=== PATIENT | female | born 1925 | race Caucasian/White ===

== ENCOUNTER 2016-10-05 21:22 | Inpatient (IN) | payer OTHER, MEDICARE ==
[2016-10-05] MEDS ORDERED: methylPREDNISolone NA SUCC 125 MG/2 ML VIAL IVPB ONE (21:51)
[2016-10-05] MEDS ORDERED: MAGNESIUM SULF 50% (8.12 MEQ/2 ML-1 GM VIAL) IVPB ONE (21:51)
[2016-10-05] MEDS ORDERED: ALBUTEROL SO4 2.5/IPRATROPIUM 0.5 INH SOL 3 ML VIAL.NEB. NEB ONE (21:51)
--- NOTE | 2016-10-05 21:51 | PDOC ---
History of Present Illness - General History Source: Patient <Kain Villalobos - Last Filed: 10/05/16 22:59> - General History Source: Patient, Long-Term Records Exam Limitations: No Limitations - History of Present Illness Initial Comments: 10/05/16 22:03 The patient is a 89 year old female with significant past medical history of COPD and hypertension who [facility] from [address] [place] [address] with 2 days of SOB and nonproductive cough. Patient reports her SOB is worsen with exertion. She denies fever, chills, diaphoresis, chest pain, jaw pain, shoulder pain, and arm pain. The patient denies abdominal pain, nausea, vomiting, and diarrhea. Allergies: NKDA Social History: Former smoker Past Surgical History: None reported PCP: Dr. Hawa Ray <Galilea Levy - Last Filed: 10/05/16 23:41> - General Chief Complaint: Respiratory Stated Complaint: SOB Time Seen by Provider: 10/05/16 21:48 Past History - Past Medical History COPD: Yes HTN: Yes - Immunization History Immunization Up to Date: Yes - Psycho/Social/Smoking Cessation Hx Suicidal Ideation: No Smoking History: Former smoker Have you smoked in the past 12 months: No Information on smoking cessation initiated: No Hx Alcohol Use: No Drug/Substance Use Hx: No Substance Use Type: None <Kain Villalobos - Last Filed: 10/05/16 22:59> <Galilea Levy - Last Filed: 10/05/16 23:41> - Past Medical History Allergies/Adverse Reactions: Allergies Allergy/AdvReac Type Severity Reaction Status Date / Time No Known Allergies Allergy Verified 10/05/16 22:44 Home Medications: Ambulatory Orders NK [No Known Home Medication] 10/05/16 Review of Systems - Review of Systems Able to Perform ROS?: Yes Comments:: 10/05/16 22:03 CONSTITUTIONAL: Absent: fever, chills, diaphoresis, generalized weakness, malaise, loss of appetite HEENT: Absent: rhinorrhea, nasal congestion, throat pain, throat swelling, difficulty swallowing, mouth swelling, ear pain, eye pain, visual Changes CARDIOVASCULAR: Absent: chest pain, syncope, palpitations, irregular heart rate, lightheadedness , peripheral edema RESPIRATORY: +dry cough, shortness of breath Absent: orthopnea, wheezing, stridor, hemoptysis GASTROINTESTINAL: Absent: abdominal pain, abdominal distension, nausea, vomiting, diarrhea, constipation, melena, hematochezia GENITOURINARY: Absent: dysuria, frequency, urgency, hesitancy, hematuria, flank pain, genital pain MUSCULOSKELETAL: Absent: myalgia, arthralgia, joint swelling SKIN: Absent: rash, itching, pallor NEUROLOGIC: Absent: headache, focal weakness or paresthesias, dizziness, unsteady gait, seizure, mental status changes, bladder or bowel incontinence PSYCHIATRIC: Absent: anxiety, depression, suicidal or homicidal ideation, hallucinations. <MildredGalilea - Last Filed: 10/05/16 23:41> *Physical Exam - Vital Signs Last Vital Signs Temp Pulse Resp BP Pulse Ox 97.6 F 84 22 132/72 98 10/05/16 21:39 10/05/16 21:39 10/05/16 21:39 10/05/16 21:39 10/05/16 21:39 <Kain Villalobos - Last Filed: 10/05/16 22:59> - Vital Signs Last Vital Signs Temp Pulse Resp BP Pulse Ox 97.6 F 84 22 132/72 98 10/05/16 21:39 10/05/16 21:39 10/05/16 21:39 10/05/16 21:39 10/05/16 21:39 - Physical Exam Comments: 10/05/16 22:04 GENERAL: Well developed, well nourished. Awake and alert. Moderate distress. HEENT: Normocephalic, atraumatic. PERRLA, EOMI. No conjunctival pallor. Sclera are non- icteric. Moist mucous membranes. Oropharynx is clear. NECK: Supple. Full ROM. No JVD. Carotid pulses 2+ and symmetric, without bruits. No thyromegaly. No lymphadenopathy. CARDIOVASCULAR: Regular rate and rhythm. No murmurs, rubs, or gallops. Distal pulses are 2+ and symmetric. PULMONARY: Moderate respiratory distress. Supraclavicular retractions. Conversational dyspnea. Bilateral decreased breath sounds. Scattered rhonchi bilaterally. ABDOMINAL: Soft. Non-tender. Non-distended. No rebound or guarding. No organomegaly. Normoactive bowel sounds. MUSCULOSKELETAL Normal range of motion at all joints. No bony deformities or tenderness. No CVA tenderness. EXTREMITIES: No cyanosis. No clubbing. No edema. No calf tenderness. SKIN: Warm and dry. Normal capillary refill. No rashes. No jaundice. NEUROLOGICAL: Alert, awake, appropriate. Cranial nerves 2-12 intact. Moving all extremities. No focal neurological deficits. PSYCHIATRIC: Cooperative. Good eye contact. Appropriate mood and affect. <MildredGalilea - Last Filed: 10/05/16 23:41> Heart Score/ECG Review - ECG Impressions Comment:: 10/05/16 22:04 NSR @83bpm Possible left atrial enlargement Borderline ECG <Galilea Levy - Last Filed: 10/05/16 23:41> ED Treatment Course - LABORATORY CBC & Chemistry Diagram: 10/05/16 22:00 10/05/16 22:00 <aKin Villalobos - Last Filed: 10/05/16 22:59> - LABORATORY CBC & Chemistry Diagram: 10/05/16 22:00 10/05/16 22:00 <MildredGalilea - Last Filed: 10/05/16 23:41> Medical Decision Making - Medical Decision Making 10/05/16 22:47 Dr. Villalobos: The scribe's documentation has been prepared under my direction and personally reviewed by me in its entirery. I confirm that the note above accurately reflects all work, treatment, procedures, and medical decision making performed by me. Patient in moderate respiratory distress. Pt will be admitted to ICU. Spoke to pt PCP, Dr. Quintanilla 10/05/16 22:59 Spoke to Casimiro Jones, accepts to ICU <Kain Villalobos - Last Filed: 10/05/16 22:59> - Medical Decision Making 10/05/16 22:[address] Hawa Ray (via answering service) at 22:[address] Ray responded back at 22:43 and patient's case was discussed. <Galilea Levy - Last Filed: 10/05/16 23:41> *DC/Admit/Observation/Transfer - Discharge Dispostion Admit: Yes <Kain Villalobos - Last Filed: 10/05/16 22:59> - Attestations Scribe Attestion: 10/05/16 22:04 Documentation prepared by Galilea Levy, acting as medical technologist clinical for Kain Villalobos MD <Galilea Levy - Last Filed: 10/05/16 23:41> Diagnosis at time of Disposition: Dyspnea Qualifiers: Dyspnea type: shortness of breath Qualified Code(s): R06.02 - Shortness of breath COPD (chronic obstructive pulmonary disease) Qualifiers: Chronic bronchitis type: unspecified
[2016-10-05] MEDS ORDERED: methylPREDNISolone NA SUCC 125 MG/2 ML VIAL ONE (22:00)
[2016-10-05] MEDS ORDERED: MAGNESIUM SULF 50% (8.12 MEQ/2 ML-1 GM VIAL) ONE (22:00)
[2016-10-05 22:26] LABS: BASOPHIL 0.5 % (0-2.0); EOSINOPHIL 0.1 % (0-4.5); MCHC 32.3 g/dl (32.0-36.0); MEAN CELL VOLUME 89.9 fl (80-96); MEAN PLT VOLUME 10.7 fl (7.5-11.1); NEUTROPHILS 88.5 % (42.8-82.8); PLATELET COUNT 232 K/MM3 (134-434); RDW 14.1 % (11.6-15.6); WHITE BLOOD COUNT 9.7 K/mm3 (4.0-10.0)
[2016-10-05] MEDS ORDERED: KETOROLAC TROMETHAMINE 30 MG/1 ML VIAL IVPUSH ONE (22:35)
[2016-10-05 22:44] LABS: ALBUMIN 4.1 g/dl (3.4-5.0); ANION GAP 6 (8-16); CALCIUM 9.5 mg/dL (8.5-10.1); CO2 30 mmol/L (21-32); GLUCOSE,RANDOM 163 mg/dL (74-106); SGPT/ALT 19 U/L (12-78)
[2016-10-05 22:47] LABS: ALK PHOS 125 U/L (45-117); BILIRUBIN,TOTAL 0.5 mg/dL (0.2-1.0); CREATININE 0.7 mg/dL (0.55-1.02); SGOT/AST 12 U/L (15-37)
--- NOTE | 2016-10-06 00:01 | CONSULT ---
Consult - text type - Consultation Consultation Note: PULM/CCM CC: Shortness of breath HPI: Ms Noriega is a very pleasant 89 y/o woman with hx of COPD (no intubations , infrequent exacerbations) and HTN who presented today to ED via ambulance from [place] with 48hrs of increased WOB, DOOLEY, and non-productive cough. She denied CXPN, LOC, fever, chills, sweats, falls. Was started on Pred 10mg yesterday, didnt take this morning. [place] called EMS when pt became increasingly SOB. In ED pt was afebrile, normotensive, non-toxic but with significant respiratory distress and accessory muscle use. She was given IV solu-medrol and stack Duo- nebs with some mild relief. CXR showed no infiltrate. No abx were started given clear CXR. She was transferred to ICU for further care. NIVPPV was started for her WOB and low dose benzo added for significant anxiety component PMHX: COPD HTN PSH: aortic aneurysm repair ~ 5 yrs ago Family HX non contrib Social Hx: [place] resident, hx of Tob, quit ~ 25 yrs ago. minimal ETOH. no illicts Medication Instructions Recorded NK [No Known Home Medication] 10/05/16 Current Medications Albuterol/Ipratropium (Duoneb -) 1 amp NEB QIDR [facility] Heparin Sodium (Porcine) (Heparin -) 5,000 unit SQ BID [facility] Methylprednisolone Sodium Succinate (Solu-Medrol -) 125 mg IVPB Q6H-IV [facility] Mometasone Furoate (Asmanex 220mcg -) 1 puff IH BID [facility] Montelukast Sodium (Singulair -) 10 mg PO HS [facility] Pantoprazole Sodium (Protonix -) 40 mg PO DAILY [facility] EKG: Sinus rhythm no ischemic changes. normal intervals CXR: no infiltrate, no pneumothorax, sternotomy sutures. PE: Gen- eld woman, anxious, in moderate resp distress, hypophonic HEENT: PERRL PULM: preserved inspiratory effort, no wheezes, mild retractions CX: RRR, no m/r/g appreciated ABD: soft, NT EXT: no edema INt: no rash Neuro: anxious, intact, lucid oriented A/89 y/o woman [place] resident w/ hx of COPD p/w increase WOB, non-productive cough x2 days c/w exacerbation P/ -will start BiPAP to assist with wob -ativan 0.5 PO for axiety -if worsens check ABG for hypercapnea -solumedrol 125 q 6, with quick taper if improves -duo nebs q6 (not currently wheezing) -restart singulair/OP meds when improved -check viral swab -check UA -DVT prophy -cont PPI -icu monitoring itzel Jones ANCP [id number] 35min CCT
--- NOTE | 2016-10-06 00:09 | PN ---
Progress Note (short form) - Note Progress Note: 89 y/o female with hx of COPD / HTN seen earlier this am ( about 10-11am ) as an urgent visit who reported had been comfortable until exposure to "white liquid" / "fumes" while in the laundry room. I saw her shortly after receiving MDI treatment with combivent. She stated the extra dose made her much more comfortable. ----- At time of exam she was speaking in full sentences / good response to dose inhaler / no distress. -----Exam revealed NO stridor / NO wheezing, and good air movement. I ordered PO steroids to prevent further exacerbation-- pharmacy was called and agreed to deliver meds by noon. She was prescribed Prednisone 20mg daily X5day ----first dose As soon as delivered. She was instructed to call 911 and go to [facility] ER if further deterioration Loli SIMONS MD
[2016-10-06] MEDS: methylPREDNISolone NA SUCC 125 MG/2 ML VIAL IVPB SCH ×3 (00:16→09:26)
[2016-10-06] MEDS: ALBUTEROL SO4 2.5/IPRATROPIUM 0.5 INH SOL 3 ML VIAL.NEB. NEB SCH ×4 (00:27→18:35)
[2016-10-06 00:54] VITALS: BMI 19.8
[2016-10-06 08:15] LABS: MCH 30.1 pg (25.7-33.7); MCHC 33.2 g/dl (32.0-36.0); MEAN CELL VOLUME 90.6 fl (80-96); MEAN PLT VOLUME 10.5 fl (7.5-11.1); PLATELET COUNT 193 K/MM3 (134-434); WHITE BLOOD COUNT 7.3 K/mm3 (4.0-10.0)
[2016-10-06 08:54] LABS: CALCIUM 8.9 mg/dL (8.5-10.1); CREATININE 0.6 mg/dL (0.55-1.02); MAGNESIUM 2.6 mg/dL (1.8-2.4); PHOSPHOROUS 3.3 mg/dL (2.5-4.9)
--- NOTE | 2016-10-06 09:35 | EKG ---
Test Reason : Blood Pressure : / mmHG Vent. Rate : 083 BPM Atrial Rate : 083 BPM P-R Int : 150 ms QRS Dur : 072 ms QT Int : 398 ms P-R-T Axes : 078 060 084 degrees QTc Int : 467 ms NORMAL SINUS RHYTHM POSSIBLE LEFT ATRIAL ENLARGEMENT BORDERLINE ECG WHEN COMPARED WITH ECG OF 24-JAN-2016 04:19, NO SIGNIFICANT CHANGE WAS FOUND Confirmed by MAC MENDOZA, BHARATH ([id number]) on 10/06/2016 9:35:14 AM Referred By: Confirmed By:BHARATH WATTS MD
[2016-10-06] MEDS ORDERED: PANTOPRAZOLE 40 MG TABLET (FP) PO SCH (10:00)
[2016-10-06] MEDS ORDERED: MOMETASONE FUROATE 220 MCG/IH INHALER IH SCH (10:00)
[2016-10-06] MEDS ORDERED: HEPARIN NA (PORCINE) 5,000 UNITS/ML 1ML VIAL SQ SCH (10:00)
[2016-10-06] MEDS ORDERED: PT OWN MED DRAWER 7, Y5N ONE (10:39)
--- NOTE | 2016-10-06 12:20 | PN ---
Teaching Attending Note Name of Resident: Osmar Crum ATTENDING PHYSICIAN STATEMENT I saw and evaluated the patient. I reviewed the resident's note and discussed the case with the resident. I agree with the resident's findings and plan as documented. SUBJECTIVE: Pt seen and examined in the ICU. Breathing significantly improved. Voice still hoarse. Some cough and wheezing. OBJECTIVE: Last Vital Signs Temp Pulse Resp BP Pulse Ox 97.9 F 80 29 H 126/91 93 L 10/06/16 10:00 10/06/16 10:14 10/06/16 10:00 10/06/16 10:00 10/06/16 12:15 Intake & Output 10/03/16 10/04/16 10/05/16 10/06/16 23:59 23:59 23:59 23:59 Intake Total 340 Balance 340 Weight 108 lb 1.6 oz 108 lb 1.6 oz Gen: NAD at rest Neck: no stridor Heart: RRR Lung: scattered wheeze, rhonchi Abd: soft, nontender Ext: no edema CBC, BMP 10/06/16 07:45 10/06/16 07:45 Active Medications Albuterol/Ipratropium (Duoneb -) 1 amp NEB QIDR [facility] Last Admin: 10/06/16 11:30 Dose: 1 amp Dexamethasone Sodium Phosphate (Decadron Injection -) 8 mg IVPB Q8H-IV [facility] Heparin Sodium (Porcine) (Heparin -) 5,000 unit SQ BID [facility] Last Admin: 10/06/16 09:26 Dose: 5,000 unit Mometasone Furoate (Asmanex 220mcg -) 1 puff IH BID [facility] Last Admin: 10/06/16 12:00 Dose: 1 puff Montelukast Sodium (Singulair -) 10 mg PO HS [facility] Pantoprazole Sodium (Protonix -) 40 mg PO DAILY [facility] Last Admin: 10/06/16 09:26 Dose: 40 mg ASSESSMENT AND PLAN: Acute Respiratory Distress Acute COPD Exacerbation ?Upper Airway Obstruction r/o Vocal Cord Dysfunction vs Edema - IV decadron - inhaled bronchodilators - O2 to keep SpO2 >90% - BiPAP as needed to assist in work of breathing - DVT/GI prophylaxis
--- NOTE | 2016-10-06 14:57 | PN ---
Progress Note, Physician History of Present Illness: patient seen and examined no events overnight doing well - Current Medication List Current Medications: Active Medications Albuterol/Ipratropium (Duoneb -) 1 amp NEB QIDR [facility] Last Admin: 10/06/16 11:30 Dose: 1 amp Dexamethasone Sodium Phosphate (Decadron Injection -) 8 mg IVPB Q8H-IV [facility] Heparin Sodium (Porcine) (Heparin -) 5,000 unit SQ BID [facility] Last Admin: 10/06/16 09:26 Dose: 5,000 unit Mometasone Furoate (Asmanex 220mcg -) 1 puff IH BID [facility] Last Admin: 10/06/16 12:00 Dose: 1 puff Montelukast Sodium (Singulair -) 10 mg PO HS [facility] Pantoprazole Sodium (Protonix -) 40 mg PO DAILY [facility] Last Admin: 10/06/16 09:26 Dose: 40 mg - Objective Vital Signs: Vital Signs Temperature 97.9 F 10/06/16 10:00 Pulse Rate 115 H 10/06/16 12:00 Respiratory Rate 18 10/06/16 12:00 Blood Pressure 133/97 10/06/16 12:00 O2 Sat by Pulse Oximetry (%) 93 L 10/06/16 12:15 Constitutional: Yes: No Distress, Calm Eyes: Yes: Conjunctiva Clear HENT: Yes: Atraumatic Neck: Yes: Supple Cardiovascular: Yes: Regular Rate and Rhythm Respiratory: Yes: CTA Bilaterally Gastrointestinal: Yes: Soft Edema: No Labs: CBC, BMP 10/06/16 07:45 10/06/16 07:45 Assessment/Plan 89F with PMH of HTN and COPD admitted with 2 days of SOB and dry cough with respiratory distress Acute respiratory distress: likely secondary to acute exacerbation of COPD was on BiPAp now patient is refusing saturating well on nasal cannula BiPAp PRN Bronchodilators stop solumedrol decadron 8mg q8h Asamex singulair possible upper airway obstruction ENT consult to r/o vocal cord dysfunction/edema IV decadron HTN: on norvasc at home hold for now as BP controlled FEN: No IVF no electrolyte issues reg diet PPx: HSQ Protonix PO PT consult not needed
[2016-10-06] MEDS ORDERED: DEXAMETHASONE SOD PHOSPHATE 10 MG/1 ML VIAL IVPB SCH (18:00)
[2016-10-06 19:54] LABS: PH,URINE 5.5 (5.0-8.0); URINE APPEARANCE CLEAR; URINE BILIRUBIN NEGATIVE (NEGATIVE); URINE BLOOD NEGATIVE (NEGATIVE); URINE COLOR YELLOW; URINE GLUCOSE (UA) 2+ (NEGATIVE); URINE KETONE TRACE (NEGATIVE); URINE LEUK ESTERASE NEGATIVE (NEGATIVE); URINE NITRITE NEGATIVE (NEGATIVE); URINE PROTEIN TRACE (NEGATIVE); URINE UROBILINOGEN 0.2 E.U/dl E.U./dl (0.2-1.0)
[2016-10-06] MEDS: HEPARIN NA (PORCINE) 5,000 UNITS/ML 1ML VIAL SQ SCH (21:07)
[2016-10-06] MEDS: MOMETASONE FUROATE 220 MCG/IH INHALER IH SCH (21:08)
[2016-10-06] MEDS: MONTELUKAST NA 10 MG TABLET PO SCH (21:09)
[2016-10-06] MEDS ORDERED: MONTELUKAST NA 10 MG TABLET PO SCH (22:00)
--- NOTE | 2016-10-06 22:29 | HP ---
Admitting History and Physical - Admission Chief Complaint: cant breath History of Present Illness: The patient is a 89 year old female with significant past medical history of COPD and hypertension who presents to the ED BIBA from [address] [place] [address] with what she reports is 2 days of SOB and nonproductive cough, however I saw the patient earlier in the day and exacerbation began the same day. She denies fever , chills, diaphoresis, chest pain, jaw pain, shoulder pain, and arm pain. 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) Cardiovascular: Yes: Aneurysm (s/p repair of decending aortic aneurysm >60 yrs ago), HTN Pulmonary: Yes: COPD Reproductive: Yes: Postmenopausal - Smoking History Smoking history: Former smoker Have you smoked in the past 12 months: No - Alcohol/Substance Use Hx Alcohol Use: No - Social History Usual Living Arrangement: Yes: Alone ADL: Independent History of Recent Travel: No Home Medications - Allergies Allergies/Adverse Reactions: Allergies Allergy/AdvReac Type Severity Reaction Status Date / Time No Known Allergies Allergy Verified 10/05/16 22:44 - Home Medications Home Medications: Ambulatory Orders NK [No Known Home Medication] 10/05/16 Review of Systems - Review of Systems Constitutional: reports: No Symptoms Eyes: reports: No Symptoms HENT: reports: No Symptoms, Nasal Congestion Neck: reports: No Symptoms Cardiovascular: reports: Shortness of Breath Respiratory: reports: SOB Gastrointestinal: reports: No Symptoms Genitourinary: reports: No Symptoms Breasts: reports: No Symptoms Reported Musculoskeletal: reports: No Symptoms Integumentary: reports: No Symptoms Neurological: reports: No Symptoms Endocrine: reports: No Symptoms Hematology/Lymphatic: reports: No Symptoms Psychiatric: reports: No Symptoms Physical Examination Vital Signs: Vital Signs Temperature 98.2 F 10/06/16 18:00 Pulse Rate 90 10/06/16 18:00 Respiratory Rate 12 10/06/16 18:00 Blood Pressure 134/85 10/06/16 18:00 O2 Sat by Pulse Oximetry (%) 93 L 10/06/16 12:15 Constitutional: Yes: Well Nourished, Anxious, Moderate Distress Eyes: Yes: Conjunctiva Clear, EOM Intact, PERRL HENT: Yes: Atraumatic, Normocephalic, Nasal Congestion Neck: Yes: Supple, Trachea Midline Cardiovascular: Yes: Regular Rate and Rhythm Respiratory: Yes: Accessory Muscle Use, Cough, On BiPap Gastrointestinal: Yes: Normal Bowel Sounds, Soft ...Rectal Exam: Yes: Deferred Renal/: Yes: WNL Breast(s): Yes: WNL Musculoskeletal: Yes: WNL Extremities: Yes: WNL Edema: No Peripheral Pulses: Left Radial: 1+, Right Radial: 1+, Left Doralis Pedis: 1+, Right Dorsalis Pedis: 1+, Left Femoral: 1+, Right Femoral: 1+ Integumentary: Yes: WNL Neurological: Yes: WNL, Confusion Psychiatric: Yes: Alert, Agitated (was sedated upon admission to ICU) Labs: CBC, BMP 10/06/16 07:45 10/06/16 07:45 Problem List - Problems (1) Acute respiratory distress Assessment/Plan: acute distress / evaluated in ER admitted to ICU low dose sedation now on bipap seems more comfortable Code(s): J80 - ACUTE RESPIRATORY DISTRESS SYNDROME (2) COPD (chronic obstructive pulmonary disease) Assessment/Plan: acute exacerbation Code(s): J44.9 - CHRONIC OBSTRUCTIVE PULMONARY DISEASE, UNSPECIFIED Qualifiers : Chronic bronchitis type: unspecified (3) Hypertension Assessment/Plan: stable without meds will continue to monitor Norvasc on hold Code(s): I10 - ESSENTIAL (PRIMARY) HYPERTENSION
--- NOTE | 2016-10-06 23:05 | PN ---
Progress Note (short form) - Note Progress Note: patient seen on medical lopez transfered from ICU comfortable but confused and agitated Vital Signs Period Temp Pulse Resp BP Sys/Pino Pulse Ox Last 24 Hr 97.7 F-98.5 F 72-115 12-32 116-147/63-97 93-100 on O2 NC -- however keeps taking it off no respiratory disstress neck no JVD heart regular S1/S2 lungs clear bilat abd soft ext no edema FROM CBC, BMP 10/06/16 07:45 10/06/16 07:45 Active Medications Albuterol/Ipratropium (Duoneb -) 1 amp NEB QIDR [facility] Dexamethasone Sodium Phosphate (Decadron Injection -) 8 mg IVPB Q8H-IV [facility] Heparin Sodium (Porcine) (Heparin -) 5,000 unit SQ BID [facility] Last Admin: 10/06/16 21:07 Dose: 5,000 unit Mometasone Furoate (Asmanex 220mcg -) 1 puff IH BID [facility] Last Admin: 10/06/16 21:08 Dose: 1 pfu Montelukast Sodium (Singulair -) 10 mg PO HS [facility] Last Admin: 10/06/16 21:09 Dose: 10 mg Pantoprazole Sodium (Protonix -) 40 mg PO DAILY [facility] Problem List - Problems (1) Acute respiratory distress Code(s): J80 - ACUTE RESPIRATORY DISTRESS SYNDROME (2) COPD (chronic obstructive pulmonary disease) Assessment/Plan: will tirate decadrom in am ENT evaluation for dyspnea as LUNG clear Code(s): J44.9 - CHRONIC OBSTRUCTIVE PULMONARY DISEASE, UNSPECIFIED Qualifiers : Chronic bronchitis type: unspecified (3) Hypertension Assessment/Plan: continue to [facility] Code(s): I10 - ESSENTIAL (PRIMARY) HYPERTENSION (4) Confusion and disorientation Assessment/Plan: will treat with Haldol and observe for safety Code(s): F99 - MENTAL DISORDER, NOT OTHERWISE SPECIFIED
[2016-10-06] MEDS ORDERED: HALOPERIDOL 1 MG TABLET (FP) PO STA (23:07)
[2016-10-07] MEDS: ALBUTEROL SO4 2.5/IPRATROPIUM 0.5 INH SOL 3 ML VIAL.NEB. NEB SCH ×5 (00:16→23:09)
[2016-10-07] MEDS ORDERED: HALOPERIDOL 1 MG TABLET (FP) PO ONE (00:45)
[2016-10-07] MEDS: DEXAMETHASONE SOD PHOSPHATE 4 MG/1 ML VIAL IVPB SCH ×2 (01:00→09:16)
[2016-10-07] MEDS ORDERED: DEXAMETHASONE SOD PHOSPHATE 4 MG/1 ML VIAL IVPB SCH (02:00)
[2016-10-07] MEDS ORDERED: HALOPERIDOL LACTATE 5 MG/ML ONE (05:58)
[2016-10-07] MEDS ORDERED: HALOPERIDOL LACTATE 5 MG/ML IM ONE (06:45)
--- NOTE | 2016-10-07 08:10 | CONSULT ---
Consult Consult Specialty:: ENT Referred by:: Dr. Crum Reason for Consultation:: vocal cord paralysis - History of Present Illness Chief Complaint: hoarseness History of Present Illness: 89 yo F assisted living resident complains of sore throat for one week, states saw MD, rx prednisone several days ago but did not improve, also hx COPD, pt says she uses Combivent prn Admitted to [facility] 10-05-16 had acute respiratory distress, transferred to ICU pt reports wearing a mask ?BIPAP which fit tightly over her face and had a part below her chin/around her neck reports voice change since denies any swallowing problems with solids or liquids denies prior history of voice change or hoarseness denies abdominal pain, heartburn or reflux - History Source History Provided By: Patient, Medical Record Limitations to Obtaining History: Dementia - 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) Cardio/Vascular: Yes: Aneurysm (s/p repair of decending aortic aneurysm >60 yrs ago), HTN Pulmonary: Yes: COPD - Past Surgical History Additional Surgical History: aortic aneurysm repair (pt reports ~5 years ago) - Alcohol/Substance Use Hx Alcohol Use: No - Smoking History Smoking history: Former smoker Have you smoked in the past 12 months: No - Social History ADL: Independent History of Recent Travel: No Home Medications - Allergies Allergies/Adverse Reactions: Allergies Allergy/AdvReac Type Severity Reaction Status Date / Time No Known Allergies Allergy Verified 10/05/16 22:44 - Home Medications Home Medications: Ambulatory Orders NK [No Known Home Medication] 10/05/16 Family Disease History - Family Disease History Family History: Unable to Obtain Physical Exam-ENT Vital Signs: Vital Signs Temperature 98.0 F 10/07/16 06:00 Pulse Rate 98 H 10/07/16 06:00 Respiratory Rate 12 10/07/16 06:00 Blood Pressure 139/97 10/07/16 06:00 O2 Sat by Pulse Oximetry (%) 97 10/06/16 21:00 Constitutional: Yes: No Distress, Anxious, Other (dysphonia, no stridor or respiratory distress) Head: Yes: WNL Face: Yes: WNL Eyes: Yes: WNL Nose: Yes: Septum Deviated Nasal Passage: Yes: Other (edema of turbinates, clear mucus, no bleeding pus or polyp) Oral/Pharynx: Yes: WNL, Other (flexible laryngoscopy: nasopharynx mild edema, clear mucus no lesion, base of tongue WNL no mass, epiglottis normal, no edema, airway patent, scant clear mucus, no pooling, endolarynx: mild to moderate arytenoid/postglottic edema, mild edema of false vocal cords, true vocal cords slight edema, no discrete lesion. Vocal cord mobiltiy: normal left, intermittently sluggish right) Outer Ear: Yes: WNL Neck: Yes: WNL Respiratory: Yes: WNL Imaging - Results Chest X-ray: Report Reviewed, Image Reviewed (lungs clear, sternal wires) Problem List - Problems (1) Hoarseness Assessment/Plan: voice change pt reports noticing a change in her voice since using BIPAP per hx former smoker, but no evidence of neoplasm denies heartburn, on pantoprazole ?prophylactic? flexible laryngoscopy shows no lesion but +vocal cord dysfunction right, intermittent no swallowing problems reported Recommend: observe ok for outpatient management concur with PPI or H2 zbigniew for possible laryngopharyngeal reflux reflux precautions follow-up in office after discharge consider speech pathology evaluation, possible speech/voice therapy (outpatient ok) Thank you for consultation, Dave Cazares MD Code(s): R49.0 - DYSPHONIA
[2016-10-07] MEDS ORDERED: PT OWN MED DRAWER 7, Y5N ONE ×5 (09:04→22:37)
[2016-10-07] MEDS: HEPARIN NA (PORCINE) 5,000 UNITS/ML 1ML VIAL SQ SCH ×2 (09:16→22:20)
[2016-10-07] MEDS: MOMETASONE FUROATE 220 MCG/IH INHALER IH SCH ×2 (09:17→22:21)
[2016-10-07] MEDS: PANTOPRAZOLE 40 MG TABLET (FP) PO SCH (09:18)
--- NOTE | 2016-10-07 13:36 | PN ---
Progress Note (short form) - Note Progress Note: PULMONARY ENT eval appreciated, intermittent right vocal cord dysfunction noted on exam. Confused. Last Vital Signs Temp Pulse Resp BP Pulse Ox 98.0 F 97 H 16 128/62 95 10/07/16 10:00 10/07/16 11:14 10/07/16 10:00 10/07/16 10:00 10/07/16 11:14 Gen: NAD at rest Heart: RRR Lung: rare rhonchi, no wheezes Abd: soft, nontender Ext: no edema CBC, BMP 10/06/16 07:45 10/06/16 07:45 Active Medications Albuterol/Ipratropium (Duoneb -) 1 amp NEB QIDR [facility] Last Admin: 10/07/16 11:15 Dose: 1 amp Dexamethasone Sodium Phosphate (Decadron Injection -) 4 mg IVPB Q8H-IV [facility] Last Admin: 10/07/16 09:16 Dose: Not Given Heparin Sodium (Porcine) (Heparin -) 5,000 unit SQ BID [facility] Last Admin: 10/07/16 09:16 Dose: Not Given Mometasone Furoate (Asmanex 220mcg -) 1 puff IH BID [facility] Last Admin: 10/07/16 09:17 Dose: 1 puff Montelukast Sodium (Singulair -) 10 mg PO HS [facility] Last Admin: 10/06/16 21:09 Dose: 10 mg Pantoprazole Sodium (Protonix -) 40 mg PO DAILY [facility] Last Admin: 10/07/16 09:18 Dose: 40 mg A/P Acute Respiratory Distress resolved Acute COPD Exacerbation Right Vocal Cord Dysfunction - will change her steroids to PO as the high dose may be contributing to her confusion and her lung exam much improved - inhaled bronchodilators - O2 to keep SpO2 >90% - BiPAP as needed to assist in work of breathing - DVT/GI prophylaxis
[2016-10-07] MEDS ORDERED: HALOPERIDOL 1 MG TABLET (FP) PO PRN (15:34)
[2016-10-07] MEDS: MONTELUKAST NA 10 MG TABLET PO SCH (22:21)
--- NOTE | 2016-10-07 23:55 | PN ---
Progress Note (short form) - Note Progress Note: awake alert confused /pressured speech / dressed "to go home now " able to ambulate in room and hallway has Aide for safety. Spoke to daughter Kalie Noriega ( vet) discussed current care and plans for out patient follow up patient has refused decadon today but has maintained stable respiratory status Vital Signs Period Temp Pulse Resp BP Sys/Pino Pulse Ox Last 24 Hr 98.0 F-98.0 F 87-98 12-16 120-139/54-97 93-95 neck - JVD heart regular S1S2 lungs clear bilat abd soft non tender ext no edema CBC,CMP WBC 7.3 K/mm3 (4.0-10.0) 10/06/16 07:45 RBC 4.66 M/mm3 (3.60-5.2) 10/06/16 07:45 Hgb 14.0 GM/dL (10.7-15.3) 10/06/16 07:45 Hct 42.2 % (32.4-45.2) 10/06/16 07:45 MCV 90.6 fl (80-96) 10/06/16 07:45 MCHC 33.2 g/dl (32.0-36.0) 10/06/16 07:45 RDW 14.0 % (11.6-15.6) 10/06/16 07:45 Plt Count 193 K/MM3 (134-434) 10/06/16 07:45 MPV 10.5 fl (7.5-11.1) 10/06/16 07:45 Neutrophils % 92.0 % (42.8-82.8) H 10/06/16 07:45 Lymphocytes % 7.0 % (8-40) L 10/06/16 07:45 Monocytes % 0.5 % (3.8-10.2) L D 10/06/16 07:45 Eosinophils % 0.0 % (0-4.5) D 10/06/16 07:45 Basophils % 0.0 % (0-2.0) 10/06/16 07:45 Sodium 140 mmol/L (136-145) 10/06/16 07:45 Potassium 3.8 mmol/L (3.5-5.1) 10/06/16 07:45 Chloride 106 mmol/L (98-107) 10/06/16 07:45 Carbon Dioxide 26 mmol/L (21-32) 10/06/16 07:45 Anion Gap 8 (8-16) 10/06/16 07:45 BUN 12 mg/dL (7-18) 10/06/16 07:45 Creatinine 0.6 mg/dL (0.55-1.02) 10/06/16 07:45 Creat Clearance w eGFR > 60 (>60) 10/05/16 22:00 Random Glucose 222 mg/dL (74-106) H D 10/06/16 07:45 Calcium 8.9 mg/dL (8.5-10.1) 10/06/16 07:45 Phosphorus 3.3 mg/dL (2.5-4.9) 10/06/16 07:45 Magnesium 2.6 mg/dL (1.8-2.4) H 10/06/16 07:45 Total Bilirubin 0.5 mg/dL (0.2-1.0) D 10/05/16 22:00 AST 12 U/L (15-37) L 10/05/16 22:00 ALT 19 U/L (12-78) 10/05/16 22:00 Alkaline Phosphatase 125 U/L (45-117) H D 10/05/16 22:00 Total Protein 8.0 g/dl (6.4-8.2) 10/05/16 22:00 Albumin 4.1 g/dl (3.4-5.0) 10/05/16 22:00 Microbiology 10/06/16 07:00 Nasopharyngeal Swab Respiratory Virus (PCR) - Preliminary 10/06/16 14:20 Urine - Urine Clean Catch Urine Culture - Final NO GROWTH OBTAINED Active Medications Albuterol/Ipratropium (Duoneb -) 1 amp NEB QIDR COUNT INCLUDES [facility] Last Admin: 10/07/16 23:09 Dose: Not Given Haloperidol (Haldol -) 1 mg PO Q8H PRN PRN Reason: AGITATION Heparin Sodium (Porcine) (Heparin -) 5,000 unit SQ BID COUNT [facility]CLUDES [facility] Last Admin: 10/07/16 22:20 Dose: Not Given Mometasone Furoate (Asmanex 220mcg -) 1 puff IH BID COUNT [facility]CLUDES [facility] Last Admin: 10/07/16 22:21 Dose: Not Given Montelukast Sodium (Singulair -) 10 mg PO HS [facility]CLUD[facility] Last Admin: 10/07/16 22:21 Dose: 10 mg Pantoprazole Sodium (Protonix -) 40 mg PO DAILY COUNT [facility]CLUD[facility] Last Admin: 10/07/16 09:18 Dose: 40 mg Prednisone (Deltasone -) 40 mg PO DAILY COUNT [facility]CLUDES [facility] respiratory status has remained stable / less agitated / more cooperative ?steroid psychosis --improving with less steroids probable D/C in am Problem List - Problems (1) Hoarseness Assessment/Plan: seen by ENT today no significant findings will continue taper steroid speech eval at [facility] Code(s): R49.0 - DYSPHONIA (2) Acute respiratory distress Code(s): J80 - ACUTE RESPIRATORY DISTRESS SYNDROME (3) COPD (chronic obstructive pulmonary disease) Code(s): J44.9 - CHRONIC OBSTRUCTIVE PULMONARY DISEASE, UNSPECIFIED (4) Hypertension Code(s): I10 - ESSENTIAL (PRIMARY) HYPERTENSION (5) Confusion and disorientation Code(s): F99 - MENTAL DISORDER, NOT OTHERWISE SPECIFIED
[2016-10-08] MEDS: ALBUTEROL SO4 2.5/IPRATROPIUM 0.5 INH SOL 3 ML VIAL.NEB. NEB SCH ×4 (05:45→23:10)
[2016-10-08] MEDS ORDERED: PT OWN MED DRAWER 7, Y5N ONE ×2 (09:15→20:45)
[2016-10-08] MEDS: MOMETASONE FUROATE 220 MCG/IH INHALER IH SCH ×2 (09:19→21:35)
[2016-10-08] MEDS: HEPARIN NA (PORCINE) 5,000 UNITS/ML 1ML VIAL SQ SCH ×2 (09:19→21:35)
[2016-10-08] MEDS: PANTOPRAZOLE 40 MG TABLET (FP) PO SCH (09:20)
[2016-10-08] MEDS: predniSONE 20 MG TABLET (UD) PO SCH ×2 (09:23→10:18)
--- NOTE | 2016-10-08 10:33 | PN ---
Progress Note (short form) - Note Progress Note: dysneic at rest / using O2 Vital Signs Period Temp Pulse Resp BP Sys/Pino Pulse Ox Last 24 Hr 97.4 F-98.2 F 80-97 16-16 126-145/67-82 95-96 neck no jvd heart S1/S2 lungs distant decreased BS no wheezing abd soft non tender ext no edema Vital Signs Period Temp Pulse Resp BP Sys/Pino Pulse Ox Last 24 Hr 97.4 F-98.2 F 80-97 16-16 126-145/67-82 95-98 Microbiology 10/06/16 07:00 Nasopharyngeal Swab Respiratory Virus (PCR) - Preliminary 10/06/16 14:20 Urine - Urine Clean Catch Urine Culture - Final NO GROWTH OBTAINED Active Medications Albuterol/Ipratropium (Duoneb -) 1 amp NEB QIDR [facility] Last Admin: 10/08/16 05:45 Dose: 1 amp Haloperidol (Haldol -) 1 mg PO Q8H PRN PRN Reason: AGITATION Heparin Sodium (Porcine) (Heparin -) 5,000 unit SQ BID [facility] Last Admin: 10/08/16 09:19 Dose: Not Given Mometasone Furoate (Asmanex 220mcg -) 1 puff IH BID [facility] Last Admin: 10/08/16 09:19 Dose: Not Given Montelukast Sodium (Singulair -) 10 mg PO HS [facility] Last Admin: 10/07/16 22:21 Dose: 10 mg Pantoprazole Sodium (Protonix -) 40 mg PO DAILY [facility] Last Admin: 10/08/16 09:20 Dose: Not Given Prednisone (Deltasone -) 40 mg PO DAILY [facility] Last Admin: 10/08/16 10:18 Dose: 40 mg assmt dysneic coughing / productive COPD HTN dementia steroid psychosis plan CXR O2 on RA Possible need for home O2 reasses by pulmonary Problem List - Problems (1) Hoarseness Code(s): R49.0 - DYSPHONIA (2) Acute respiratory distress Code(s): J80 - ACUTE RESPIRATORY DISTRESS SYNDROME (3) COPD (chronic obstructive pulmonary disease) Code(s): J44.9 - CHRONIC OBSTRUCTIVE PULMONARY DISEASE, UNSPECIFIED (4) Hypertension Code(s): I10 - ESSENTIAL (PRIMARY) HYPERTENSION (5) Confusion and disorientation Code(s): F99 - MENTAL DISORDER, NOT OTHERWISE SPECIFIED
--- NOTE | 2016-10-08 12:53 | PN ---
Progress Note (short form) - Note Progress Note: PULMONARY OOB TO CHAIR/DYSPHONIA VSS ANICTERIC SCATTERED RHONCHI S1S2 BS+ SOFT LESS EDEMA LABS/IMAGING/MEDS/NOTES/MICRO REVIEWED Acute Respiratory Distress resolved Acute COPD Exacerbation Right Vocal Cord Dysfunction - steroids to PO - inhaled bronchodilators - O2 to keep SpO2 >90% - BiPAP as needed to assist in work of breathing - DVT/GI prophylaxis Juan Luis VERAS MD
[2016-10-08] MEDS: MONTELUKAST NA 10 MG TABLET PO SCH (21:35)
[2016-10-09] MEDS: ALBUTEROL SO4 2.5/IPRATROPIUM 0.5 INH SOL 3 ML VIAL.NEB. NEB SCH ×4 (06:20→23:21)
[2016-10-09 07:38] LABS: BASOPHIL 0.4 % (0-2.0); EOSINOPHIL 0.5 % (0-4.5); MCH 29.9 pg (25.7-33.7); MEAN CELL VOLUME 90.7 fl (80-96); MEAN PLT VOLUME 10.7 fl (7.5-11.1); NEUTROPHILS 66.4 % (42.8-82.8); PLATELET COUNT 206 K/MM3 (134-434); RDW 14.2 % (11.6-15.6)
[2016-10-09] MEDS ORDERED: PT OWN MED DRAWER 7, Y5N ONE (08:51)
[2016-10-09] MEDS: MOMETASONE FUROATE 220 MCG/IH INHALER IH SCH (09:05)
[2016-10-09] MEDS: HEPARIN NA (PORCINE) 5,000 UNITS/ML 1ML VIAL SQ SCH ×2 (09:08→21:00)
[2016-10-09] MEDS: PANTOPRAZOLE 40 MG TABLET (FP) PO SCH (09:08)
[2016-10-09] MEDS: predniSONE 20 MG TABLET (UD) PO SCH (09:08)
--- NOTE | 2016-10-09 11:17 | PN ---
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
[2016-10-09 11:52] LABS: CALCIUM 9.3 mg/dL (8.5-10.1); CREATININE 0.5 mg/dL (0.55-1.02)
[2016-10-09] MEDS: MONTELUKAST NA 10 MG TABLET PO SCH (21:00)
--- NOTE | 2016-10-09 22:49 | PN ---
Progress Note (short form) - Note Progress Note: less agitated but dysneic may require O2 at home will discuss with Pulm need for pipap at home has not reqired pipap since ICU Vital Signs Period Temp Pulse Resp BP Sys/Pino Pulse Ox Last 24 Hr 97.6 F-98.4 F 76-111 20-22 111-167/56-77 95-95 neck supple -jvd heart reg s1/s2 lung grossly clear abd soft ext no edema CBC, BMP 10/09/16 06:00 10/09/16 06:00 Current Medications Albuterol/Ipratropium (Duoneb -) 1 amp NEB QIDR [facility] Last Admin: 10/09/16 17:45 Dose: 1 amp Haloperidol (Haldol -) 1 mg PO Q8H PRN PRN Reason: AGITATION Heparin Sodium (Porcine) (Heparin -) 5,000 unit SQ BID [facility] Last Admin: 10/09/16 21:00 Dose: 5,000 unit Montelukast Sodium (Singulair -) 10 mg PO HS [facility] Last Admin: 10/09/16 21:00 Dose: 10 mg Pantoprazole Sodium (Protonix -) 40 mg PO DAILY [facility] Last Admin: 10/09/16 09:08 Dose: Not Given Prednisone (Deltasone -) 40 mg PO DAILY [facility] Last Admin: 10/09/16 09:08 Dose: 20 mg Microbiology 10/06/16 07:00 Nasopharyngeal Swab Respiratory Virus (PCR) - Preliminary 10/06/16 14:20 Urine - Urine Clean Catch Urine Culture - Final NO GROWTH OBTAINED Problem List - Problems (1) Hoarseness Code(s): R49.0 - DYSPHONIA (2) Acute respiratory distress Code(s): J80 - ACUTE RESPIRATORY DISTRESS SYNDROME (3) COPD (chronic obstructive pulmonary disease) Code(s): J44.9 - CHRONIC OBSTRUCTIVE PULMONARY DISEASE, UNSPECIFIED (4) Hypertension Code(s): I10 - ESSENTIAL (PRIMARY) HYPERTENSION (5) Confusion and disorientation Code(s): F99 - MENTAL DISORDER, NOT OTHERWISE SPECIFIED
[2016-10-10] MEDS: ALBUTEROL SO4 2.5/IPRATROPIUM 0.5 INH SOL 3 ML VIAL.NEB. NEB SCH ×4 (06:35→23:15)
--- NOTE | 2016-10-10 08:46 | PN ---
Progress Note (short form) - Note Progress Note: comfortable sitting up in bed is able to discuss her medications and med changes that have occurred anxious but saturating well on RA / with ambulation / and at rest Vital Signs Period Temp Pulse Resp BP Sys/Pino Pulse Ox Last 24 Hr 97.4 F-98.4 F 77-111 20-20 108-140/56-82 95-95 moist productive cough yet uable to expectorate dysphoneic alert oriented neck - jvd heart reg lungs clear abd soft non tender ext no edema CBC, BMP 10/09/16 06:00 10/09/16 06:00 Problem List - Problems (1) Hoarseness Code(s): R49.0 - DYSPHONIA (2) Acute respiratory distress Code(s): J80 - ACUTE RESPIRATORY DISTRESS SYNDROME (3) COPD (chronic obstructive pulmonary disease) Code(s): J44.9 - CHRONIC OBSTRUCTIVE PULMONARY DISEASE, UNSPECIFIED (4) Hypertension Code(s): I10 - ESSENTIAL (PRIMARY) HYPERTENSION (5) Confusion and disorientation Code(s): F99 - MENTAL DISORDER, NOT OTHERWISE SPECIFIED
[2016-10-10] MEDS: PANTOPRAZOLE 40 MG TABLET (FP) PO SCH (09:20)
[2016-10-10] MEDS: predniSONE 20 MG TABLET (UD) PO SCH (09:25)
[2016-10-10] MEDS: HEPARIN NA (PORCINE) 5,000 UNITS/ML 1ML VIAL SQ SCH ×2 (09:26→22:17)
--- NOTE | 2016-10-10 11:42 | PN ---
Progress Note (short form) - Note Progress Note: PULMONARY OOB TO CHAIR/DYSPHONIA CONTINUES VSS ANICTERIC SCATTERED RHONCHI S1S2 BS+ SOFT LESS EDEMA LABS/IMAGING/MEDS/NOTES/MICRO REVIEWED Acute Respiratory Distress resolved Acute COPD Exacerbation Right Vocal Cord Dysfunction - steroids to PO tapering - have d/c asmanex as it may be contributing to her dysphonia - inhaled bronchodilators - O2 to keep SpO2 >90% - BiPAP as needed to assist in work of breathing - DVT/GI prophylaxis Juan Luis VERAS MD
[2016-10-10] MEDS: MONTELUKAST NA 10 MG TABLET PO SCH (22:17)
[2016-10-11] MEDS: ALBUTEROL SO4 2.5/IPRATROPIUM 0.5 INH SOL 3 ML VIAL.NEB. NEB SCH ×2 (06:32→11:42)
[2016-10-11] MEDS: PANTOPRAZOLE 40 MG TABLET (FP) PO SCH (09:47)
[2016-10-11] MEDS: HEPARIN NA (PORCINE) 5,000 UNITS/ML 1ML VIAL SQ SCH (09:47)
[2016-10-11] MEDS: predniSONE 10 MG TABLET (UD) PO SCH ×2 (10:00→13:38)
--- NOTE | 2016-10-11 11:12 | PN ---
Progress Note, Physician History of Present Illness: pulmonary alert,oob-chair,-resp distress,still hoarse - Current Medication List Current Medications: Active Medications Albuterol/Ipratropium (Duoneb -) 1 amp NEB QIDR [facility] Last Admin: 10/11/16 06:32 Dose: 1 amp Haloperidol (Haldol -) 1 mg PO Q8H PRN PRN Reason: AGITATION Heparin Sodium (Porcine) (Heparin -) 5,000 unit SQ BID [facility] Last Admin: 10/11/16 09:47 Dose: Not Given Montelukast Sodium (Singulair -) 10 mg PO HS [facility] Last Admin: 10/10/16 22:17 Dose: Not Given Pantoprazole Sodium (Protonix -) 40 mg PO DAILY [facility] Last Admin: 10/11/16 09:47 Dose: Not Given Prednisone (Deltasone -) 30 mg PO DAILY [facility] - Objective Vital Signs: Vital Signs Temperature 98 F 10/11/16 06:53 Pulse Rate 78 10/11/16 06:53 Respiratory Rate 20 10/11/16 06:53 Blood Pressure 125/64 10/11/16 06:53 O2 Sat by Pulse Oximetry (%) 95 10/10/16 21:00 Constitutional: Yes: Calm, Thin Eyes: Yes: WNL HENT: Yes: WNL Neck: Yes: WNL Cardiovascular: Yes: Regular Rate and Rhythm, S1, S2 Respiratory: Yes: Diminished Gastrointestinal: Yes: Normal Bowel Sounds, Soft Extremities: Yes: WNL Edema: No Labs: CBC, BMP Problem List - Problems (1) Acute respiratory distress Code(s): J80 - ACUTE RESPIRATORY DISTRESS SYNDROME (2) COPD (chronic obstructive pulmonary disease) Code(s): J44.9 - CHRONIC OBSTRUCTIVE PULMONARY DISEASE, UNSPECIFIED (3) Dyspnea Code(s): R06.00 - DYSPNEA, UNSPECIFIED Qualifiers: Dyspnea type: shortness of breath Qualified Code(s): R06.02 - Shortness of breath (4) Hoarseness Code(s): R49.0 - DYSPHONIA (5) Hypertension Code(s): I10 - ESSENTIAL (PRIMARY) HYPERTENSION Assessment/Plan IMP Acute Respiratory Distress resolved Acute COPD Exacerbation stable Right Vocal Cord Dysfunction - prednisone - have d/c asmanex as it may be contributing to her dysphonia - inhaled bronchodilators - O2 to keep SpO2 >90% - DVT/GI prophylaxis DR BARRERA
[2016-10-11 11:42] VITALS: BP 121/68; TEMP 97.7
[2016-10-11 11:43] VITALS: PULSE 61
--- NOTE | 2016-10-11 14:38 | PN ---
Progress Note (short form) - Note Progress Note: alert clear of mind - able to provide hx and understands management able to go home today ambulating without dysnea Vital Signs Period Temp Pulse Resp BP Sys/Pino Pulse Ox Last 24 Hr 97.3 F-98 F 61-89 20-20 114-149/64-95 95-95 neck supple heart reg lungs clear bilat abd soft non tender ext no edema CBC, BMP 10/09/16 06:00 10/09/16 06:00 Active Medications Albuterol/Ipratropium (Duoneb -) 1 amp NEB QIDR [facility] Last Admin: 10/11/16 11:42 Dose: 1 amp Haloperidol (Haldol -) 1 mg PO Q8H PRN PRN Reason: AGITATION Heparin Sodium (Porcine) (Heparin -) 5,000 unit SQ BID [facility] Last Admin: 10/11/16 09:47 Dose: Not Given Montelukast Sodium (Singulair -) 10 mg PO HS [facility] Last Admin: 10/10/16 22:17 Dose: Not Given Pantoprazole Sodium (Protonix -) 40 mg PO DAILY [facility] Last Admin: 10/11/16 09:47 Dose: Not Given Prednisone (Deltasone -) 30 mg PO DAILY [facility] Last Admin: 10/11/16 13:38 Dose: 20 mg Microbiology 10/06/16 07:00 Nasopharyngeal Swab Respiratory Virus (PCR) - Preliminary 10/06/16 14:20 Urine - Urine Clean Catch Urine Culture - Final NO GROWTH OBTAINED # COPD stable / continue nebulizer / steroids / # altered mental status due to hypoxia / steroid induced now resolved # HTN has not needed meds stable Problem List - Problems (1) Hoarseness Code(s): R49.0 - DYSPHONIA (2) Acute respiratory distress Code(s): J80 - ACUTE RESPIRATORY DISTRESS SYNDROME (3) COPD (chronic obstructive pulmonary disease) Code(s): J44.9 - CHRONIC OBSTRUCTIVE PULMONARY DISEASE, UNSPECIFIED (4) Hypertension Code(s): I10 - ESSENTIAL (PRIMARY) HYPERTENSION (5) Confusion and disorientation Code(s): F99 - MENTAL DISORDER, NOT OTHERWISE SPECIFIED
== END 2016-10-11 15:22 | disposition home or self-care (01) | DRG 191 ==
LOC: JER 21:22 → SUPCPDRO 21:22 → JERBED 23:24 → UNDOADMIN 23:30 → JICU 23:42 → JERBED 23:42 → J4S 10-06 19:25
PROVIDERS: ADMIT Family Medicine; ATTEND Family Medicine
PROC: 0CJS8ZZ Inspection of Larynx, Via Natural or Artificial Opening Endoscopic (ICD-10-PCS; principal; 2016-10-07)
DX: J44.1 Chronic obstructive pulmonary disease with (acute) exacerbation (principal); J80 Acute respiratory distress syndrome; I10 Essential (primary) hypertension; F99 Mental disorder, not otherwise specified; R49.0 Dysphonia
CPT/HCPCS: 36415; 71010-TC; 80048; 80053; 81003; 83735; 84100; 85025; 85027; 87086; 87633; 93005; 93010; 94640; 94660; 94761; 97116-GP; 99285-25; J1644

== ENCOUNTER 2017-04-27 08:21 | Emergency (ER) | payer OTHER, MEDICARE ==
[2017-04-27 08:30] VITALS: BMI 20.1
--- NOTE | 2017-04-27 09:37 | PDOC ---
History of Present Illness - General History Source: Patient Exam Limitations: No Limitations - History of Present Illness Initial Comments: 04/27/17 09:45 The patient is a 89 year old female, with a significant past medical history of COPD and HTN, who presents to the emergency department s/p mechanical fall, yesterday. The patient reports tripping over boxes and landing on/injuring her right foot. She denies any head trauma or LOC. She reports since the original injury having right foot pain with any weight bearing activities, ranking her pain a 9/10 in pain intensity. She denies any pain in her right foot while at rest. She also notes having swelling in her right foot since the injury. She denies any other injuries from the fall. She denies recent fevers, chills, headache or dizziness. She denies recent nausea, vomit, diarrhea or constipation. Allergies: NKA Past surgical history: None reported. Social history: Former Smoker. Occasional EtOH use and denies recreational drug use. Primary Care Physician: <Ramiro Rizo - Last Filed: 04/27/17 10:17> <Debbie Goode - Last Filed: 04/27/17 10:29> - General Chief Complaint: Injury Stated Complaint: RT FOOT PAIN Time Seen by Provider: 04/27/17 08:38 Past History <Ramiro Rizo - Last Filed: 04/27/17 10:17> - Past Medical History COPD: Yes HTN: Yes - Surgical History Cardiac Surgery: Yes (aortic aneurysm repair 5 years ago) Orthopedic Surgery: Yes (right knee surgery) - Immunization History Immunization Up to Date: Yes - Psycho/Social/Smoking Cessation Hx Anxiety: No Suicidal Ideation: No Smoking History: Never smoked Have you smoked in the past 12 months: No If you are a former smoker, when did you quit?: 3 YRS Hx Alcohol Use: Yes (SOCIAL WINE) Drug/Substance Use Hx: No Substance Use Type: None <Debbie Goode - Last Filed: 04/27/17 10:29> - Past Medical History Allergies/Adverse Reactions: Allergies Allergy/AdvReac Type Severity Reaction Status Date / Time No Known Allergies Allergy Verified 04/27/17 08:30 Home Medications: Ambulatory Orders Amlodipine Besylate [Norvasc -] 10 mg PO DAILY 10/11/16 Aspirin [ASA -] 81 mg PO DAILY 10/11/16 Ipratropium/Albuterol Sulfate [Combivent Respimat Inhal [place]] 4 gm IH 10/11/16 Montelukast Na [Singulair -] 10 mg PO HS #30 tablet 10/11/16 Prednisone [Deltasone -] 20 mg PO DAILY #30 tablet 10/11/16 Review of Systems - Review of Systems Able to Perform ROS?: Yes Comments:: 04/27/17 09:45 GENERAL/CONSTITUTIONAL: No fever or chills. No weakness. HEAD, EYES, EARS, NOSE AND THROAT: No change in vision. No ear pain or discharge. No sore throat. CARDIOVASCULAR: No chest pain or shortness of breath. RESPIRATORY: No cough, wheezing, or hemoptysis. GASTROINTESTINAL: No nausea, vomiting, diarrhea or constipation. GENITOURINARY: No dysuria, frequency, or change in urination. MUSCULOSKELETAL: +right foot pain. No other joint or muscle swelling or pain. No neck or back pain. SKIN: No rash NEUROLOGIC: No headache, vertigo, loss of consciousness, or change in strength/ sensation. ENDOCRINE: No increased thirst. No abnormal weight change. HEMATOLOGIC/LYMPHATIC: No anemia, easy bleeding, or history of blood clots. ALLERGIC/IMMUNOLOGIC: No hives or skin allergy. <Ramiro Rizo - Last Filed: 04/27/17 10:17> *Physical Exam - Vital Signs Last Vital Signs Temp Pulse Resp BP Pulse Ox 97.7 F 96 H 20 127/73 97 04/27/17 08:27 04/27/17 08:27 04/27/17 08:27 04/27/17 08:27 04/27/17 08:27 - Physical Exam Comments: 04/27/17 09:45 GENERAL: Awake, alert, and fully oriented, in no acute distress HEAD: No signs of trauma EYES: PERRLA, EOMI, sclera anicteric, conjunctiva clear ENT: Auricles normal inspection, hearing grossly normal, nares patent, oropharynx clear without exudates. Moist mucosa NECK: Normal ROM, supple, no lymphadenopathy, JVD, or masses LUNGS: Breath sounds equal, clear to auscultation bilaterally. No wheezes, and no crackles HEART: Regular rate and rhythm, normal S1 and S2, no murmurs, rubs or gallops ABDOMEN: Soft, nontender, normoactive bowel sounds. No guarding, no rebound. No masses EXTREMITIES: Mild swelling of the dorsum of the right foot. Hematoma that extends from the 2nd toe to the 4th toe with mild tenderness to palpation a the base of the 2nd toe. Normal strength and sensation. No wounds at the foot. 2+DP pulse. MUSCULOSKELETAL: No spinal tenderness. No midline tenderness. NEUROLOGICAL: Cranial nerves II through XII grossly intact. AO X 3, Normal speech. 5/5 strength in upper and lower extremities. Sensation is intact throughout. SKIN: Warm, Dry, normal turgor, no rashes or lesions noted. <Ramiro Rizo - Last Filed: 04/27/17 10:17> - Vital Signs Last Vital Signs Temp Pulse Resp BP Pulse Ox 97.7 F 96 H 20 127/73 97 04/27/17 08:27 04/27/17 08:27 04/27/17 08:27 04/27/17 08:27 04/27/17 08:27 <Debbie Goode - Last Filed: 04/27/17 10:29> ED Treatment Course - RADIOLOGY Radiograph Interpretation: 04/27/17 09:45 RIGHT FOOT X-RAY impressions reported by : No acute fracture identified. <Ramiro Rizo - Last Filed: 04/27/17 10:17> Medical Decision Making - Medical Decision Making 04/27/17 10:12 89yo F presents with R foot pain s/p fall yesterday. No head strike or LOC. No other complaints. Exam unremarkable except R foot appears mildly swollen with mild ttp at the base of the 2nd through 4th metatarsals. XR negative for bony injury, pt neurovascularly intact. Ambulating without assistance in ED (at baseline) Likely foot sprain. -parker bandage -boot -podiatry sandra -MELISSA -[facility] -DC 04/27/17 10:25 <Debbie Goode - Last Filed: 04/27/17 10:29> *DC/Admit/Observation/Transfer - Attestations Scribe Attestion: 04/27/17 09:45 Documentation prepared by Ramiro Rizo, acting as medical officer for Debbie Goode MD. <BirgityRamiro - Last Filed: 04/27/17 10:17> - Discharge Dispostion Admit: No - Attestations Physician Attestion: 04/27/17 10:27 I, Dr. Debbie Goode MD, attest that this document has been prepared under my direction and personally reviewed by me in its entirety. I further attest, that it accurately reflects all work, treatment, procedures and medical decision -making performed by me. <Debbie Goode - Last Filed: 04/27/17 10:29> Diagnosis at time of Disposition: Sprain of foot Qualifiers: Encounter type: initial encounter Laterality: right Qualified Code(s): S93.601A - Unspecified sprain of right foot, initial encounter - Discharge Dispostion Disposition: HOME Condition at time of disposition: Stable - Referrals Referrals: Quique Treadwell MD [Staff Physician] - - Patient Instructions Printed Discharge Instructions: DI for Foot Sprain Additional Instructions: Please wear the provided boot and call the prize jacker today for a follow up appointment within 1 week. You may take tylenol as needed for pain. Apply ice 2- 3 times per day for 15 minutes and keep your foot elevated as much as possible
[2017-04-27 11:05] VITALS: BP 128/81; PULSE 81; TEMP 97.9
== END 2017-04-27 11:04 ==
LOC: JER 08:21
DX: S93.601A Unspecified sprain of right foot, initial encounter (principal); W18.09XA Striking against other object with subsequent fall, initial encounter; Y93.01 Activity, walking, marching and hiking; Y92.128 Other place in nursing home as the place of occurrence of the external cause; I10 Essential (primary) hypertension; J44.9 Chronic obstructive pulmonary disease, unspecified
CPT/HCPCS: 73610-TC-RT; 73630-TC-RT; 99282-25

== ENCOUNTER 2017-06-26 08:04 | Emergency (ER) | payer OTHER, MEDICARE ==
[2017-06-26 08:43] VITALS: BMI 20.1
--- NOTE | 2017-06-26 08:44 | PDOC ---
History of Present Illness - General Chief Complaint: Pain Stated Complaint: BACK PAIN Time Seen by Provider: 06/26/17 08:40 Past History - Past Medical History Allergies/Adverse Reactions: Allergies Allergy/AdvReac Type Severity Reaction Status Date / Time No Known Allergies Allergy Verified 06/26/17 08:43 Home Medications: Ambulatory Orders Amlodipine Besylate [Norvasc -] 10 mg PO DAILY 10/11/16 Aspirin [ASA -] 81 mg PO DAILY 10/11/16 Ipratropium/Albuterol Sulfate [Combivent Respimat Inhal [place]] 4 gm IH 10/11/16 Montelukast Na [Singulair -] 10 mg PO HS #30 tablet 10/11/16 Prednisone [Deltasone -] 20 mg PO DAILY #30 tablet 10/11/16 COPD: Yes HTN: Yes - Surgical History Cardiac Surgery: Yes (aortic aneurysm repair 5 years ago) Orthopedic Surgery: Yes (right knee surgery) - Immunization History Immunization Up to Date: Yes - Suicide/Smoking/Psychosocial Hx Smoking History: Former smoker Have you smoked in the past 12 months: No If you are a former smoker, when did you quit?: 3 YRS Information on smoking cessation initiated: No Hx Alcohol Use: No Drug/Substance Use Hx: No Substance Use Type: Alcohol *Physical Exam - Vital Signs Last Vital Signs Temp Pulse Resp BP Pulse Ox 97.6 F 91 H 20 153/77 99 06/26/17 08:36 06/26/17 08:36 06/26/17 08:36 06/26/17 08:36 06/26/17 08:36
--- NOTE | 2017-06-26 08:46 | PDOC ---
Attending Attestation - HPI HPI: 06/26/17 11:09 Patient is a 89 year old female with a significant past medical history of COPD and hypertension, Aneurysm (s/p repair of descending aortic aneurysm >60 yrs ago ), who presents to the ED with complaints of constipation that began this morning. Patient reports that she has been unable to have a bowel movement all morning despite trying multiple times. She reports lower back pain secondary to constipation. Patient states her last natural non forced bowel movement was 4 days ago. She reports not passing gas recently, but states that is her baseline. Denies chest pain, SOB. Denies dysuria, diarrhea. Denies fever, chills. Denies any other symptoms. Allergies: None Social history: Former smoker, No alcohol. No illicit drugs, Surgical history: aortic aneurysm repair 5 years ago, right knee surgery PMD: Dr. Denilson Enrique. - Physicial Exam PE: 06/26/17 11:09 GENERAL: Awake, alert, and fully oriented, in no acute distress HEAD: No signs of trauma EYES: PERRLA, EOMI, sclera anicteric, conjunctiva clear ENT: Auricles normal inspection, hearing grossly normal, nares patent, oropharynx clear without exudates. Moist mucosa NECK: Normal ROM, supple, no lymphadenopathy, JVD, or masses LUNGS: Breath sounds equal, clear to auscultation bilaterally. No wheezes, and no crackles HEART: Regular rate and rhythm, normal S1 and S2, no murmurs, rubs or gallops ABDOMEN: Super Soft, nontender, normoactive bowel sounds. No guarding, no rebound. No masses EXTREMITIES: Normal range of motion, no edema. No clubbing or cyanosis. No cords, erythema, or tenderness NEUROLOGICAL: Cranial nerves II through XII grossly intact. Normal speech, normal gait SKIN: Warm, Dry, normal turgor, no rashes or lesions noted. <Enrique Odell - Last Filed: 06/26/17 11:09> - Resident Resident Name: Melissa Kramer - ED Attending Attestation I have performed the following: I have examined & evaluated the patient, The case was reviewed & discussed with the resident, I agree w/resident's findings & plan, Exceptions are as noted - Medical Decision Making 06/26/17 10:32 a/p: 89yo female with decreased bm and manually disimpacted herself last night. no n/v -xray -labs -rectal exam -poss manual disimpaction here -will need GI follow up and follow up with PMD. Pt also asking for a new name for a patient financial coordinator - denies cp/sob just wants to see a patient financial coordinator as an outpt 06/26/17 10:37 I, Dr. Gretchen Whitt, DO, attest that this document has been prepared under my direction and personally reviewed by me in its entirety. I further attest, that it accurately reflects all work, treatment, procedures and medical decision -making performed by me. <Gretchen Whitt - Last Filed: 06/26/17 11:18>
--- NOTE | 2017-06-26 08:47 | PDOC ---
History of Present Illness - General Chief Complaint: Pain Stated Complaint: BACK PAIN Time Seen by Provider: 06/26/17 08:40 History Source: Patient - History of Present Illness Initial Comments: 06/26/17 09:01 CC: "I'm fine now." Patient is an 89 y.o. female with a PMH of HTN and COPD who presents to our facility today c/o resolved B/L lower back pain as well as constipation. Patient notes a 2 day h/o of sharp, constant lower back pain with some intermittent sharp abdominal pain that became increasingly severe last night after dinner prompting her visit to the ED this morning. Patient notes she has a h/o of constipation for which she performs self-rectal disimpaction. Her last normal bowel movement was 4 days previous (patient has bowel movements 1- 2x weekly) and this morning, in an attempt to relieve her pain, she attempted a self-disimpaction however only a small amount of hard, dark (not black) stool was retrieved. Patient denies any fevers, chills, nausea or vomiting. Past History - Past Medical History Allergies/Adverse Reactions: Allergies Allergy/AdvReac Type Severity Reaction Status Date / Time No Known Allergies Allergy Verified 06/26/17 08:43 Home Medications: Ambulatory Orders Aspirin [ASA -] 81 mg PO DAILY 10/11/16 Ipratropium/Albuterol Sulfate [Combivent Respimat Inhal [place]] 4 gm IH ASDIR Amlodipine Besylate [Norvasc -] 10 mg PO DAILY 06/26/17 Theophylline Anhydrous [Theophylline] 0 mg PO ASDIR 06/26/17 COPD: Yes HTN: Yes - Surgical History Cardiac Surgery: Yes (aortic aneurysm repair 5 years ago) Orthopedic Surgery: Yes (right knee surgery) - Immunization History Immunization Up to Date: Yes - Suicide/Smoking/Psychosocial Hx Smoking History: Former smoker Have you smoked in the past 12 months: No If you are a former smoker, when did you quit?: 3 YRS Information on smoking cessation initiated: No Hx Alcohol Use: No Drug/Substance Use Hx: No Substance Use Type: Alcohol Review of Systems - Review of Systems Constitutional: No: Chills, Fever HEENTM: No: Blurred Vision, Double Vision Respiratory: Yes: Orthopnea. No: Cough Cardiac (ROS): No: Chest Pain, Irregular Heart Rate, Lightheadedness, Palpitations ABD/GI: Yes: Constipated, Abdominal cramping. No: Nausea, Vomiting : No: Burning, Dysuria Musculoskeletal: Yes: Back Pain Integumentary: No: Bruising, Erythema Neurological: No: Headache All Other Systems: Reviewed and Negative *Physical Exam - Vital Signs Last Vital Signs Temp Pulse Resp BP Pulse Ox 97.6 F 91 H 20 153/77 99 06/26/17 08:36 06/26/17 08:36 06/26/17 08:36 06/26/17 08:36 06/26/17 08:36 - Physical Exam General Appearance: Yes: Nourished, Thin Neck: positive: Trachea midline, Supple Respiratory/Chest: positive: Lungs Clear, Normal Breath Sounds Cardiovascular: positive: Regular Rhythm, Regular Rate, S1, S2 Gastrointestinal/Abdominal: positive: Normal Bowel Sounds, Soft Musculoskeletal: positive: CVA Tenderness (R). negative: CVA Tenderness, Vertebral Tenderness Extremity: positive: Delayed Capillary Refill Integumentary: positive: Normal Color, Dry Neurologic: positive: Fully Oriented, Alert ED Treatment Course - LABORATORY CBC & Chemistry Diagram: 06/26/17 09:27 06/26/17 09:27 Medical Decision Making - Medical Decision Making 06/26/17 10:18 Patient is a 89 y.o. female who presents with back and abdominal pain as well as h/o of constipation. Initial DDx is for fecal impaction vs. obstruction, less likely is SBO. PLAN: 1. CBC/CMP 2. Abdominal XR CBC shows no leukocytosis and CMP reveals no electrolyte abnormalities. Lipase is normal. Abdominal XR shows retained stool with no impaction or obstruction. Bedside JAMILAH shows a minimal amount of fecal matter in the rectal vault. FOBT is negative. Patient given 1 L IV NS and discharged home with a prescription for Famotidine and instruction to discontinue use if she develops diarrhea. Patient instructed to follow up with PCP and given referral to engineering and scientific programmer as requested. *DC/Admit/Observation/Transfer Diagnosis at time of Disposition: Constipation - Discharge Dispostion Disposition: HOME Condition at time of disposition: Good Admit: No - Referrals Referrals: Denilson Enrique MD [Primary Care Provider] - - Patient Instructions Printed Discharge Instructions: DI for Constipation Additional Instructions: Please take 1 cap of Miralax each evening, followed by a full glass of water. Please stop if you develop diarrhea. Please follow up with your PCP within 1 week. In addition, at your request, information for a engineering and scientific programmer, Dr. Adkins , has been provided. Please return to the Emergency Department should you develop worsening of your symptoms
[2017-06-26] MEDS ORDERED: SODIUM CHLORIDE 0.9% 1000 ML INFUS.BAG IV ONE (09:08)
[2017-06-26 09:33] LABS: BASOPHIL 0.8 % (0-2.0); EOSINOPHIL 1.6 % (0-4.5); MCH 29.3 pg (25.7-33.7); MCHC 33.1 g/dl (32.0-36.0); MEAN CELL VOLUME 88.3 fl (80-96); MEAN PLT VOLUME 10.1 fl (7.5-11.1); NEUTROPHILS 78.8 % (42.8-82.8); PLATELET COUNT 204 K/MM3 (134-434); RDW 14.8 % (11.6-15.6); WHITE BLOOD COUNT 7.4 K/mm3 (4.0-10.0)
[2017-06-26 09:58] LABS: ALBUMIN 3.6 g/dl (3.4-5.0); ANION GAP 6 (8-16); BILIRUBIN,TOTAL 0.4 mg/dL (0.2-1.0); CALCIUM 8.9 mg/dL (8.5-10.1); CO2 29 mmol/L (21-32); CREATININE 0.6 mg/dL (0.55-1.02); GLUCOSE,RANDOM 102 mg/dL (74-106); SGOT/AST 16 U/L (15-37); SGPT/ALT 19 U/L (12-78); TOT PROT 7.2 g/dl (6.4-8.2)
[2017-06-26 09:59] LABS: ALK PHOS 74 U/L (45-117)
[2017-06-26] MEDS ORDERED: SODIUM PHOSPHATE/NA BIPHOS 133 ML ENEMA PR ONE (10:44)
[2017-06-26 11:56] VITALS: BP 146/89; PULSE 87; TEMP 97.4
== END 2017-06-26 13:56 | disposition home or self-care (01) ==
LOC: JER 08:04
DX: K59.00 Constipation, unspecified (principal); I10 Essential (primary) hypertension; J44.9 Chronic obstructive pulmonary disease, unspecified; Z87.891 Personal history of nicotine dependence
CPT/HCPCS: 36415; 74020-TC; 80053; 82272; 83605; 83690; 85025; 99281-25